=== PATIENT | male | born 1970 | race Caucasian/White ===

== ENCOUNTER 2017-09-04 18:55 | Emergency (ER) | payer OTHER ==
[~2017-09-04] VITALS: Ht 185.4 cm; Wt 92.9 kg
[2017-09-04 20:42] LABS: HEMATOCRIT 30.9 % (38.0-50.0); HEMOGLOBIN 10.7 G/DL (12.5-16.6); MCH 27.2 PG (29.0-34.0); MCHC 34.6 G/DL (30.0-36.0); MCV 78.4 FL (86-99); PLATELET COUNT 333 K/uL (156-360); RBC DIS.WIDTH-CV 12.6 % (11.8-14.6); RBC DIS.WIDTH-SD 35.8 % (39-53); RED BLOOD COUNT 3.94 M/uL (4.00-5.50); WHITE BLOOD COUNT 11.7 K/uL (4.1-10.2)
[2017-09-04 20:48] LABS: INTER. NORMALIZED RATIO 1.4
[2017-09-04 20:50] LABS: CHLORIDE 95 mEq/L (99-109); POTASSIUM 3.2 mEq/L (3.7-5.4); SODIUM 132 mEq/L (136-147)
[2017-09-04 20:51] LABS: PTT 26.4 SEC (25-37)
[2017-09-04 20:52] LABS: GLUCOSE 92 mg/dL (70-99)
[2017-09-04 20:53] LABS: TOTAL PROTEIN 4.9 g/dL (6.4-8.3)
[2017-09-04 20:54] LABS: TOTAL BILIRUBIN 0.4 mg/dL (0.0-1.0)
[2017-09-04 20:56] LABS: ALKALINE PHOSPHATASE 57 IU/L (3-129); CREATININE 0.9 mg/dL (0.6-1.3); GFR ESTIMATE (CALCULATED) > 59 mL/min/ (58.99-99999)
[2017-09-04 20:57] LABS: UREA NITROGEN (BUN) 11 mg/dL (9-23)
[2017-09-04 20:58] LABS: AST (GOT) 16 IU/L (2-34)
[2017-09-04 20:59] LABS: ALT (GPT) 14 IU/L (3-49)
[2017-09-04 21:21] LABS: C DIFF TOXIN NEGATIVE (NEGATIVE)
[2017-09-05 00:27] VITALS: BP 109/64
== END 2017-09-05 00:57 | disposition short-term general hospital (02) ==
LOC: EME 18:55
PROVIDERS: Emergency Medicine
DX: K51.011 Ulcerative (chronic) pancolitis with rectal bleeding (principal); K92.2 Gastrointestinal hemorrhage, unspecified; R00.0 Tachycardia, unspecified; I10 Essential (primary) hypertension
CPT/HCPCS: 74177; 80053; 83605; 85027; 85610; 85730; 87493; 93005; 99281; 99285; J1956; J7030; S0030

== ENCOUNTER 2017-09-24 16:41 | Emergency (ER) | payer OTHER ==
[~2017-09-24] VITALS: Ht 185.4 cm; Wt 87.8 kg
[2017-09-24 18:07] LABS: CHLORIDE 97 mEq/L (99-109); HEMATOCRIT 25.7 % (38.0-50.0); MCH 26.1 PG (29.0-34.0); MCHC 33.1 G/DL (30.0-36.0); MCV 78.8 FL (86-99); PLATELET COUNT 310 K/uL (156-360); POTASSIUM 4.3 mEq/L (3.7-5.4); RBC DIS.WIDTH-CV 14.7 % (11.8-14.6); RBC DIS.WIDTH-SD 42.4 % (39-53); RED BLOOD COUNT 3.26 M/uL (4.00-5.50); SODIUM 128 mEq/L (136-147); WHITE BLOOD COUNT 11.2 K/uL (4.1-10.2)
[2017-09-24 18:09] LABS: GLUCOSE 115 mg/dL (70-99); TOTAL PROTEIN 4.9 g/dL (6.4-8.3)
[2017-09-24 18:11] LABS: TOTAL BILIRUBIN 0.5 mg/dL (0.0-1.0)
[2017-09-24 18:13] LABS: ALKALINE PHOSPHATASE 76 IU/L (3-129); CREATININE 1.1 mg/dL (0.6-1.3); GFR ESTIMATE (CALCULATED) > 59 mL/min/ (58.99-99999)
[2017-09-24 18:14] LABS: UREA NITROGEN (BUN) 14 mg/dL (9-23)
[2017-09-24 18:15] LABS: TROP-I INTERPRETATION NEGATIVE; TROPONIN-I < 0.01 ng/mL (0.0-0.30)
[2017-09-24 18:15] LABS: AST (GOT) 7 IU/L (2-34)
[2017-09-24 18:16] LABS: ALT (GPT) 11 IU/L (3-49)
[2017-09-24 18:45] LABS: C-REACTIVE PROTEIN 102.9 MG/L (0-10)
[2017-09-24 18:48] LABS: ABS NEUTROPHIL COUNT 9.8; ANISOCYTOSIS 1+; BAND NEUTROPHILS 14.9 % (0-8.0); EOSINOPHIL ABS CT 0; HEMOGLOBIN 8.5 G/DL (12.5-16.6); LYMPHOCYTES 10.5 % (15.0-45.0); MONOCYTES 1.8 % (0-9.0); PLAT.SUFFICIENCY ADEQUATE; POIKILOCYTOSIS 3+; POLYCHROMASIA 1+; SEG.NEUTROPHILS 72.8 % (46.0-76.0)
[2017-09-24 20:02] VITALS: BP 108/79
[2017-09-24 20:22] VITALS: BP 125/82
[2017-09-24 21:57] VITALS: BP 122/86
== END 2017-09-24 22:14 | disposition short-term general hospital (02) ==
LOC: EME 16:41 → AMB 16:41 → EME 22:14
PROVIDERS: Emergency Medicine
PROC: 30233N1 Transfusion of Nonautologous Red Blood Cells into Peripheral Vein, Percutaneous Approach (ICD-10-PCS; principal; 2017-09-24)
DX: K92.2 Gastrointestinal hemorrhage, unspecified (principal); R55 Syncope and collapse; D62 Acute posthemorrhagic anemia; R42 Dizziness and giddiness; R00.0 Tachycardia, unspecified; Z87.891 Personal history of nicotine dependence
CPT/HCPCS: 71045; 80053; 84484; 85025; 86140; 86850; 86900; 86901; 86920; 93005; 99281; 99285; J7030; P9016